=== PATIENT | female | born 1955 | race Caucasian/White ===

== ENCOUNTER 2018-07-17 02:50 | Emergency (ER) | payer MEDICARE, OTHER ==
[2018-07-17] MEDS ORDERED: SODIUM CHLORIDE 0.9% 1000ML 1,000 ML IV ONE ×2 (03:10→07:36)
[2018-07-17] MEDS ORDERED: FOLIC ACID 1 MG TAB PO ONE (03:11)
[2018-07-17] MEDS ORDERED: THIAMINE 100 MG TAB PO ONE (03:11)
[2018-07-17 03:26] LABS: BASOPHILS % (AUTO) 2 % (0-3); EOSINOPHILS % (AUTO) 12 % (0-9); HEMATOCRIT 40 % (35-47); HEMOGLOBIN 13.2 gm/dl (12.0-15.5); LYMPHOCYTES % (AUTO) 33.9 % (10-50); MEAN CORPUSCULAR HEMOGLOBIN 31.7 pg (27.0-32.0); MEAN CORPUSCULAR HGB CONC 33.1 gm/dl (32.0-36.0); MEAN CORPUSCULAR VOLUME 96 fL (81-99); MONOCYTES % (AUTO) 6.3 % (0-12); NEUTROPHILS % (AUTO) 45.7 % (37-80)
[2018-07-17 03:35] LABS: CALCIUM 8.7 mg/dl (8.5-10.1); CREATININE 0.8 mg/dl (0.60-1.00); POTASSIUM 3.6 mMol/L (3.5-5.1)
[2018-07-17] MEDS ORDERED: SODIUM CHLORIDE 0.9% FLUSH 10 ML SOL IV PRN (03:36)
[2018-07-17] MEDS ORDERED: THIAMINE 100 MG TAB ONE (03:39)
[2018-07-17] MEDS ORDERED: FOLIC ACID 1 MG TAB ONE (03:39)
[2018-07-17 03:40] LABS: CARBON DIOXIDE 24.6 mEq/L (21-32)
[2018-07-17 03:43] LABS: ALCOHOL 0.265 gm/dl (0.000-0.08)
[2018-07-17] MEDS ORDERED: LORAZEPAM 2 MG/ML SOL IV ONE (04:02)
[2018-07-17] MEDS ORDERED: LORAZEPAM 2 MG/ML SOL ONE (04:05)
[2018-07-17 04:19] LABS: AMPHETAMINES NEGATIVE (NEGATIVE); BARBITUATES NEGATIVE (NEGATIVE); BENZODIAZEPINES NEGATIVE (NEGATIVE); CANNABINOL(THC) NEGATIVE (NEGATIVE); COCAINE(COC) NEGATIVE (NEGATIVE); METHADONE NEGATIVE (NEGATIVE); METHAMPHETAMINES NEGATIVE (NEGATIVE); OPIATES(OPI) NEGATIVE (NEGATIVE); OXYCODONE(OXY) NEGATIVE (NEGATIVE); PROPOXYPHENE(PPX) NEGATIVE (NEGATIVE); TRICYCLIC ANTIDEPRESSANTS NEGATIVE (NEGATIVE)
[2018-07-17] MEDS ORDERED: APAP/OXYCODONE 1 EACH TABLET PO ONE (04:32)
[2018-07-17] MEDS ORDERED: APAP/OXYCODONE 1 EACH TABLET ONE (04:33)
[2018-07-17 04:40] VITALS: TEMP 97
[2018-07-17] MEDS ORDERED: CLONAZEPAM 0.5 MG TAB PO PRN (05:26)
[2018-07-17] MEDS ORDERED: CLONAZEPAM 0.5 MG TAB ONE (05:38)
[2018-07-17 08:23] VITALS: BP 90/62; PULSE 69; RESP 18; O2SAT 91
== END 2018-07-17 10:02 | disposition home or self-care (01) | DRG 914 ==
LOC: ED 02:50
DX: S09.90XA Unspecified injury of head, initial encounter (principal); F10.129 Alcohol abuse with intoxication, unspecified; Y90.8 Blood alcohol level of 240 mg/100 ml or more
CPT/HCPCS: 70450; 80048; 80305; 80307; 85025; 96365; 96366; 96374; 99282; 99285; G0390; J2060; A9270-GY